=== PATIENT | female | born 1985 | race Hispanic/Latino ===

== ENCOUNTER 2018-03-23 22:06 | Emergency (ER) | payer OTHER ==
[2018-03-23 23:14] LABS: BASOPHILS % (AUTO) 0.5 % (0.0-5.0); HEMATOCRIT 35.3 % (36-48); MEAN CORPUSCULAR HEMOGLOBIN 28.1 pg (27.0-33.0); MEAN CORPUSCULAR HGB CONC 33.3 g/dL (32.0-36.0); MEAN CORPUSCULAR VOLUME 84.6 fL (79-99); MONOCYTES % (AUTO) 6.5 % (3.0-13.0); PLATELET COUNT (AUTO) 282 K/uL (130-400); RED BLOOD CELL COUNT(AUTO) 4.17 MIL/uL (4.00-5.50); RED CELL DISTRIBUTION WIDTH 14.7 % (11.0-15.5); WHITE BLOOD COUNT (AUTO) 9.1 K/uL (4.8-10.8)
[2018-03-23 23:23] LABS: APPEARANCE,URINE CLOUDY (CLEAR); BILIRUBIN,URINE NEGATIVE (NEGATIVE); COLOR,URINE YELLOW (YELLOW); GLUCOSE, URINE (UA) NEGATIVE (NEGATIVE); KETONES,URINE NEGATIVE (NEGATIVE); LEUKOCYTE ESTERASE ,URINE LARGE (NEGATIVE); NITRATE,URINE POSITIVE (NEGATIVE); OCCULT BLOOD,URINE MODERATE (NEGATIVE); PH,URINE 7.5 (5.0-8.0); PROTEIN,URINE 100 (NEGATIVE); UROBILINOGEN,URINE 0.2 mg/dL (0.2-1.0)
[2018-03-23 23:28] LABS: HCG,QUAL RESULT POSITIVE (NEGATIVE)
[2018-03-23 23:33] LABS: CREATININE 1.2 mg/dL (0.5-1.5); POTASSIUM 4.1 mmol/L (3.5-5.1)
[2018-03-23 23:40] LABS: BACTERIA,URINE Moderate /HPF (None Seen); WBC,URINE TNTC /HPF (0-1)
[2018-03-24] MEDS ORDERED: CEFTRIAXONE SODIUM 1 GM ONE (00:04)
== END 2018-03-24 00:51 | disposition home or self-care (01) ==
LOC: EDH 22:06
DX: O20.0 Threatened abortion (principal); O23.41 Unspecified infection of urinary tract in pregnancy, first trimester; Z3A.01 Less than 8 weeks gestation of pregnancy
CPT/HCPCS: 36415; 76801; 80048; 81001; 81025; 84702; 85025; 86900; 86901; 96372; 99284; J0696

== ENCOUNTER 2018-05-22 13:10 | Emergency (ER) | payer MEDICAID ==
[2018-05-22 14:01] LABS: APPEARANCE,URINE Clear (CLEAR); BILIRUBIN,URINE Negative (NEGATIVE); COLOR,URINE Yellow (YELLOW); GLUCOSE, URINE (UA) Negative (NEGATIVE); KETONES,URINE Negative (NEGATIVE); LEUKOCYTE ESTERASE ,URINE Moderate (NEGATIVE); NITRATE,URINE Negative (NEGATIVE); OCCULT BLOOD,URINE Large (NEGATIVE); PH,URINE 6.5 (5.0-8.0); PROTEIN,URINE POS 2+ mg/dL (NEGATIVE); UROBILINOGEN,URINE 0.2 mg/dL (0.2-1.0)
[2018-05-22 14:20] LABS: BACTERIA,URINE Few /HPF (None Seen); MUCUS,URINE Few LPF (None Seen); RBC,URINE 26-50 /HPF (0-1); SQUAMOUS EPITHELIAL CELL,UR 0-2 /HPF (0-2); WBC,URINE 26-50 /HPF (0-1)
== END 2018-05-22 14:42 | disposition home or self-care (01) ==
LOC: EDH 13:10
DX: O23.12 Infections of bladder in pregnancy, second trimester (principal); Z90.49 Acquired absence of other specified parts of digestive tract; Z3A.15 15 weeks gestation of pregnancy
CPT/HCPCS: 81001

== ENCOUNTER 2018-07-09 15:42 | Observation (INO) | payer MEDICAID ==
[~2018-07-09] VITALS: Ht 149.9 cm; Wt 62.9 kg
[2018-07-09 17:38] LABS: APPEARANCE,URINE Clear (CLEAR); BILIRUBIN,URINE Negative (NEGATIVE); COLOR,URINE Yellow (YELLOW); GLUCOSE, URINE (UA) Negative (NEGATIVE); KETONES,URINE Negative (NEGATIVE); LEUKOCYTE ESTERASE ,URINE Moderate (NEGATIVE); NITRATE,URINE Negative (NEGATIVE); OCCULT BLOOD,URINE Negative (NEGATIVE); PH,URINE 6.5 (5.0-8.0); PROTEIN,URINE POS 1+ mg/dL (NEGATIVE); UROBILINOGEN,URINE 0.2 mg/dL (0.2-1.0)
[2018-07-09 17:40] LABS: BACTERIA,URINE Rare /HPF (None Seen); RBC,URINE 0-1 /HPF (0-1)
[2018-07-09 17:43] LABS: SQUAMOUS EPITHELIAL CELL,UR Rare /HPF (0-2); YEAST,URINE BUDDING Rare /HPF (None Seen)
[2018-07-09] MEDS ORDERED: PROMETHAZINE HCL 25 MG/ML 1ML AMPULE IM SCH (17:45)
[2018-07-09] MEDS ORDERED: ONDANSETRON HCL 4 MG/2 ML VIAL IVP SCH (17:45)
[2018-07-09] MEDS ORDERED: DINOPROSTONE 10 MG VAGINAL SUPP VG SCH (19:00)
[2018-07-09 19:30] VITALS: BP 121/82
[2018-07-09] MEDS: FAMOTIDINE/PF 20 MG/2 ML VIAL IV SCH (20:20)
[2018-07-09] MEDS: LACTATED RINGERS 1000ML 1,000 ML IV SCH (20:20)
[2018-07-09] MEDS ORDERED: PREN1TAB80 PO (20:26)
[2018-07-09] MEDS ORDERED: SENN8.6T52 PO (20:26)
[2018-07-09 21:12] LABS: HEMATOCRIT 30.8 % (36-48); MEAN CORPUSCULAR HEMOGLOBIN 26.5 pg (27.0-33.0); MEAN CORPUSCULAR HGB CONC 32.5 g/dL (32.0-36.0); MEAN CORPUSCULAR VOLUME 81.4 fL (79-99); NUCLEATED RED BLOOD CELLS 0.1 % (0.0-0.19); PLATELET COUNT (AUTO) 330 K/uL (130-400); RED BLOOD CELL COUNT(AUTO) 3.79 MIL/uL (4.00-5.50); RED CELL DISTRIBUTION WIDTH 13.5 % (11.0-15.5); WHITE BLOOD COUNT (AUTO) 12.7 K/uL (4.8-10.8)
[2018-07-09 21:20] LABS: CREATININE 1.2 mg/dL (0.5-1.5)
[2018-07-09 21:21] LABS: INR 0.87 (0.85-1.15); PARTIAL THROMBOPLASTIN TIME 23.1 SEC (26.3-35.5); PROTHROMBIN TIME 9.2 SEC (9.6-11.6)
[2018-07-09 21:24] LABS: ALBUMIN 2.4 g/dL (3.5-5.0); BILIRUBIN,TOTAL 0.5 mg/dL (0.2-1.0); TOTAL PROTEIN, SERUM 6.7 g/dL (6.0-8.3)
[2018-07-09] MEDS: LACTULOSE 20 GM/30 ML UDCUP PO SCH (21:33)
[2018-07-09] MEDS: GLYCERIN ADULT SUPP.RECT RC SCH (21:37)
[2018-07-09] MEDS ORDERED: CEFTRIAXONE SODIUM 2 GM VIAL IVP SCH (21:45)
[2018-07-09 21:51] LABS: OCCULT BLOOD,GASTRIC FLUID POSITIVE (NEGATIVE)
[2018-07-09] MEDS ORDERED: CEFTRIAXONE SODIUM 1 GM ONE (22:28)
[2018-07-09] MEDS ORDERED: PROMETHAZINE HCL 25 MG/ML 1ML AMPULE IVPB PRN (23:00)
[2018-07-10] MEDS ORDERED: ONDANSETRON HCL 4 MG/2 ML 8 MG in SODIUM CHLORIDE 0.9% 50 ML IV PRN (01:00)
[2018-07-10 01:12] LABS: HEMATOCRIT 30.9 % (36-48)
[2018-07-10] MEDS: LACTATED RINGERS 1000ML 1,000 ML IV SCH (03:27)
[2018-07-10 05:38] LABS: HEMATOCRIT 28.2 % (36-48)
[2018-07-10] MEDS ORDERED: PANTOPRAZOLE SODIUM 80 MG in SODIUM CHLORIDE 0.9% 100 ML IV SCH (06:46)
[2018-07-10] MEDS ORDERED: ONDANSETRON HCL 4 MG/2 ML VIAL IVP PRN (07:00)
[2018-07-10] MEDS: LACTULOSE 20 GM/30 ML UDCUP PO SCH ×2 (08:45→21:59)
[2018-07-10] MEDS ORDERED: BISACODYL 10 MG SUPP.RECT RC SCH (14:30)
[2018-07-10] MEDS ORDERED: PROMETHAZINE HCL 25 MG/ML 1ML AMPULE IM PRN (17:00)
[2018-07-10 17:20] VITALS: BP 130/83
[2018-07-10] MEDS: LACTATED RINGERS 1000ML 1,000 ML IV PRN (17:43)
[2018-07-10 19:20] VITALS: BP 129/86
[2018-07-10] MEDS: FAMOTIDINE/PF 20 MG/2 ML VIAL IV SCH (19:45)
[2018-07-10] MEDS: GLYCERIN ADULT SUPP.RECT RC SCH (20:45)
[2018-07-10] MEDS ORDERED: CEFTRIAXONE SODIUM 1 GM ONE ×2 (22:39→22:40)
[2018-07-10 23:35] VITALS: BP 125/75
[2018-07-11] MEDS: LACTATED RINGERS 1000ML 1,000 ML IV PRN ×2 (01:43→06:52)
[2018-07-11 04:10] VITALS: BP 119/85
[2018-07-11 04:56] LABS: BASOPHILS % (AUTO) 0.1 % (0.0-5.0); HEMATOCRIT 26.4 % (36-48); LYMPHOCYTES % (AUTO) 6.4 % (21.0-51.0); MEAN CORPUSCULAR HEMOGLOBIN 27.4 pg (27.0-33.0); MEAN CORPUSCULAR HGB CONC 33.4 g/dL (32.0-36.0); MEAN CORPUSCULAR VOLUME 82.1 fL (79-99); MONOCYTES % (AUTO) 6.3 % (3.0-13.0); NEUTROPHILS % (AUTO) 87.2 % (40.0-77.0); NUCLEATED RED BLOOD CELLS 0.1 % (0.0-0.19); PLATELET COUNT (AUTO) 257 K/uL (130-400); RED BLOOD CELL COUNT(AUTO) 3.22 MIL/uL (4.00-5.50); RED CELL DISTRIBUTION WIDTH 13.7 % (11.0-15.5); WHITE BLOOD COUNT (AUTO) 12.1 K/uL (4.8-10.8)
[2018-07-11 05:09] LABS: CREATININE 1.2 mg/dL (0.5-1.5); POTASSIUM 3.9 mmol/L (3.5-5.1)
[2018-07-11 07:31] VITALS: BP 121/82
--- NOTE | 2018-07-11 08:25 | NUR ---
ROUNDS DR. GRIJALVA ROUNDING ON PATIENT. INFORMED DR. GRIJALVA ON PATIENT ABLE TO HAVE BOWEL MOVEMENT. LBM WAS SEEN, FORMED, BROWN, NO BLOOD NOTED. PATIENT REPORTS FEELING "A LOT BETTER." ABDOMINAL US RESULTS DISCUSSED WITH PATIENT. Addendum: 07/11/18 at 1255 by SARBJIT BRADLEY LVN LVN DR. HARVEY DISCUSSED US RESULTS WITH PATIENT.
[2018-07-11] MEDS: LACTULOSE 20 GM/30 ML UDCUP PO SCH (09:17)
--- NOTE | 2018-07-11 09:30 | NUR ---
MD DR. CARLOS ROUNDING ON PATIENT. DISCHARGE POC DISCUSSED WITH PATIENT. QUESTIONS INVITED AND ANSWERED. PATIENT OKAY FOR DISCHARGE FROM DR. CARLOS'S STAND POINT.
--- NOTE | 2018-07-11 09:45 | NUR ---
SPOKE WITH DR. CARLOS. NEW ORDERS RECEIVED TO REMOVE CHERY CATHETER PRIOR TO DISCHARGE.
--- NOTE | 2018-07-11 10:30 | NUR ---
SPOKE WITH DR. HARVEY TO INFORM THAT IT WILL TAKE A FEW DAYS TO RECEIVE H.PYLORI ANTIGEN STOOL RESULTS. PATIENT IS OKAY FOR DISCHARGE FROM DR. HARVEY STANDPOINT. PATIENT TO FOLLOW UP ON WEDNESDAY OF THIS WEEK.
--- NOTE | 2018-07-11 10:32 | NUR ---
SPOKE WITH NEO ORTEGA TO INFORM THAT DR. HARVEY WAS NOTIFIED ON TIME FRAME FOR H.PYLORI RESULTS. PATIENT IS CLEAR FROM HOSPITALIST STANDPOINT.
[2018-07-11] MEDS ORDERED: PANTOPRAZOLE SODIUM 40 MG TABLET.DR PO SCH (10:45)
[2018-07-11 11:47] VITALS: BP 122/76
--- NOTE | 2018-07-11 14:20 | NUR ---
CHERY CHERY CATHETER REMOVED WITH TIP INTACT. 300ML OF CLEAR YELLOW URINE EMPTIED FROM BAG.
--- NOTE | 2018-07-11 14:20 | NUR ---
INSTRUCTIONS DISCHARGE INSTRUCTIONS READ AND EXPLAINED TO PATIENT. QUESTIONS INVITED AND ANSWERED. EXPLAINED TO PATIENT SHE NEEDS TO SCHEDULE HER OWN APPOINTMENTS TOMORROW. EXPLAINED IMPORTANCE OF ALL FOLLOW UP APPOINTMENTS. PATIENT VERBALIZED UNDERSTANDING.
--- NOTE | 2018-07-11 14:40 | NUR ---
DISCHARGE PATIENT LEFT UNIT VIA WHEELCHAIR WITH BELONGINGS IN HAND. PERSONAL VEHICLE USED FOR TRANSPORTATION. NO COMPLAINTS OR CONCERNS ADDRESSED FROM PATIENT ON DISCHARGE.
[2018-07-12] MEDS ORDERED: PANTOPRAZOLE SODIUM 40 MG TABLET.DR PO SCH (07:30)
== END 2018-07-11 14:40 | disposition home or self-care (01) ==
LOC: EDH 15:42 → LDH 15:43 → WSH 07-10 17:39
PROVIDERS: ADMIT Obstetrics & Gynecology; ATTEND Obstetrics & Gynecology
DX: O21.2 Late vomiting of pregnancy (principal); O99.612 Diseases of the digestive system complicating pregnancy, second trimester; K59.00 Constipation, unspecified; Q05.9 Spina bifida, unspecified; Z82.0 Family history of epilepsy and other diseases of the nervous system; Z82.49 Family history of ischemic heart disease and other diseases of the circulatory system; Z83.3 Family history of diabetes mellitus; Z82.3 Family history of stroke; Z3A.22 22 weeks gestation of pregnancy; Z79.01 Long term (current) use of anticoagulants
CPT/HCPCS: 36415 ×3; 76700; 80048; 80053; 81001; 82270 ×2; 82271 ×2; 85014 ×3; 85018 ×3; 85025; 85027; 85610; 85730; 86677; 86850; 86900; 86901; 86922; 87077; 87088; 87186; 87338; 96361 ×3; 96365; 96366; 96375 ×3; 99284; A4218; A4314; A4510 ×3; C9113; G0378 ×37; J0696 ×4; J2405 ×2; J2550 ×3; J3490 ×2; J7120 ×5; 96360

== ENCOUNTER 2018-10-05 13:28 | Observation (INO) | payer MEDICAID ==
[~2018-10-05] VITALS: Ht 152.4 cm; Wt 65.3 kg
[~2018-10-05 13:28] MED LIST: PREN1TAB80 PO; SENN8.6T52 PO
[2018-10-05] MEDS ORDERED: LACTATED RINGERS 1000ML 1,000 ML IV PRN (13:55)
[2018-10-05 14:33] LABS: APPEARANCE,URINE Clear (CLEAR); BILIRUBIN,URINE Negative (NEGATIVE); COLOR,URINE Yellow (YELLOW); GLUCOSE, URINE (UA) Negative (NEGATIVE); KETONES,URINE Negative (NEGATIVE); LEUKOCYTE ESTERASE ,URINE Large (NEGATIVE); NITRATE,URINE Negative (NEGATIVE); OCCULT BLOOD,URINE Small (NEGATIVE); PH,URINE 6.5 (5.0-8.0); PROTEIN,URINE POS 2+ mg/dL (NEGATIVE); UROBILINOGEN,URINE 0.2 mg/dL (0.2-1.0)
[2018-10-05 14:42] LABS: BACTERIA,URINE Few /HPF (None Seen); MUCUS,URINE Few LPF (None Seen)
[2018-10-05] MEDS ORDERED: TERBUTALINE SULFATE VIAL 1MG/ML SQ PRN (15:00)
[2018-10-05] MEDS ORDERED: CEFTRIAXONE SODIUM 1 GM IVP SCH (16:00)
== END 2018-10-05 16:35 | disposition home or self-care (01) ==
LOC: EDH 13:28 → LDH 13:29
PROVIDERS: ADMIT Obstetrics & Gynecology; ATTEND Obstetrics & Gynecology
DX: O62.9 Abnormality of forces of labor, unspecified (principal); Z3A.34 34 weeks gestation of pregnancy
CPT/HCPCS: 81001; 87077; 87088; 87186; 96372; 96374; 99284; A4351; G0378 ×3; J0696; J3105; J7120 ×2; 96360

== ENCOUNTER 2018-10-11 08:43 | Observation (INO) | payer MEDICAID ==
[~2018-10-11] VITALS: Ht 149.9 cm; Wt 65.8 kg
[2018-10-11 09:33] LABS: APPEARANCE,URINE CLOUDY (CLEAR); BILIRUBIN,URINE NEGATIVE (NEGATIVE); COLOR,URINE YELLOW (YELLOW); GLUCOSE, URINE (UA) NEGATIVE (NEGATIVE); KETONES,URINE NEGATIVE (NEGATIVE); LEUKOCYTE ESTERASE ,URINE LARGE (NEGATIVE); NITRATE,URINE NEGATIVE (NEGATIVE); OCCULT BLOOD,URINE SMALL (NEGATIVE); PROTEIN,URINE 100 mg/dL (NEGATIVE); UROBILINOGEN,URINE 0.2 mg/dL (0.2-1.0)
[2018-10-11 09:57] LABS: BACTERIA,URINE Moderate /HPF (None Seen); RBC,URINE 0-1 /HPF (0-1); WBC,URINE >100 /HPF (0-1)
[2018-10-11 09:58] LABS: SQUAMOUS EPITHELIAL CELL,UR Few /HPF (0-2)
[2018-10-11] MEDS ORDERED: CEFTRIAXONE SODIUM 1 GM IV SCH (10:45)
== END 2018-10-11 12:25 | disposition home or self-care (01) ==
LOC: EDH 08:43 → LDH 08:44
PROVIDERS: ADMIT Obstetrics & Gynecology; ATTEND Obstetrics & Gynecology
DX: O60.03 Preterm labor without delivery, third trimester (principal); Z3A.35 35 weeks gestation of pregnancy; Z79.899 Other long term (current) drug therapy
CPT/HCPCS: 81001; 87077; 87088; 87186; 96374; 99284; A4351; G0378 ×4; J0696; J7120; 96360

== ENCOUNTER 2018-10-31 10:52 | Inpatient (IN) | payer MEDICAID | END 2018-11-04 19:40 | disposition home or self-care (01) | LOC: LDH 10:52 → WSH 11-01 04:45 → LDH 10:52 → WSH 11-01 04:45 → LDH 11-02 16:57 | PROC: 10E0XZZ Delivery of Products of Conception, External Approach (ICD-10-PCS; principal; 2018-11-01 07:52) | PROC: 0UB70ZZ Excision of Bilateral Fallopian Tubes, Open Approach (ICD-10-PCS; 2018-11-01 07:52) | DX: O23.40 Unspecified infection of urinary tract in pregnancy, unspecified trimester (principal); Z37.0 Single live birth; Z3A.00 Weeks of gestation of pregnancy not specified ==